=== PATIENT | female | born 1945 | race Caucasian/White ===

== ENCOUNTER → 2016-09-18 | Day surgery (SDC) | payer OTHER ==
[2016-08-28 08:21] VITALS: Ht 157.5 cm; Wt 55.5 kg
[~2016-09-18] VITALS: Ht 157.5 cm; Wt 55.5 kg
[~2016-09-18] MED LIST: ACETAMINOPHEN 325 MG TAB PO PRN; ASCO-63 PO; ATROPINE SULFATE 0.1 MG/ML 5ML SYR IV PRN; ATROPINE SULFATE 1% OP SOLN 2 ML BTL ONE; AcetylCHOLine CHL OP SOL 1:100 2 ML BTL ONE; BRIMONIDINE TART 0.2% OP SOLN PER DROP CHARGE ONE; BSS 500ML IRRIG ONE; BSS FLUSH ONE; CALC-393 PO; CHOL1TAB46 PO; EpHEDrine SULFATE INJ 50 MG/ML AMP IV PRN; EpINEphrine INJ 1MG/ML AMP 1 MG/ML AMP ONE; FENTANYL CITRATE INJ 50 MCG/1 ML 2 ML VIAL ONE; HEALON 10MG/ML 0.85 ML SYR INSTIL ONE; IBAN150T PO; LACTATED RINGER'S 1000ML 500 ML IV SCH; LIDOCAINE 3.5% OPH GEL PER APPLICATION CHARGE OPL SCH; LIDOCAINE 4% OP SOLN DROP CHARGE ONE; LIDOCAINE 4% OP SOLN DROP CHARGE OPL SCH; LIDOCAINE HCL 1% MPF 2 ML VIAL ONE; MIDAZOLAM HCL 1 MG/ML 2ML VIAL ONE; MOXIFLOXACIN OPH SOLN PER DROP CHARGE ONE; MULT-506 PO; OMEG12006 PO; POVIDONE-IODINE OP SOLN 30 ML BTL ONE; PRED1SUS3 OPL; PROPARACAINE 0.5% OP SOLN PER DROP CHARGE OPL SCH; RANI300T2 PO; TETRACAINE HCL (OPHTH) 60 DROPS/4 ML BTL OP ONE; TOBRAMYCIN/DEXAMETHASONE OPH OINT PER APPLN CHARGE ONE; VITA400C3 PO
[2016-09-18] MEDS: MOXIFLOXACIN OPH SOLN PER DROP CHARGE OPL SCH ×3 (10:13→10:24)
--- NOTE | 2016-09-18 10:20 | History & Physical Bridge - [place] ---
H&P Re-Evaluation Bridge Note: I have examined the patient, reviewed the History & Physical and in the interval since the performance of the History & Physical I have noted the following changes of clinical significance: No changes noted
[2016-09-18 11:35] VITALS: TEMP 36.5
--- NOTE | 2016-09-18 11:37 | [facility] Post Operative Brief Note ---
Immediate Operative Summary Operative Date September 18, 2016. Pre-Operative Diagnosis Left Eye Secondary Corneal Edema Post-Operative Diagnosis Same Procedure(s) Performed Left Eye Descements Stripping Automated Endothelial Keratoplasty, Back Bench Surgeon Dr. Thacker Product Safety Head Surgeon(s) None Estimated Blood Loss 0 Findings corneal edema left eye Specimens Corneal Donor Rim for Routine Culture Complication(s) None Disposition Recovery Room / PACU
--- NOTE | 2016-09-18 11:37 | Discharge Instructions-SurgCtr ---
Discharge Instructions Date of Service September 18, 2016. Visit Reason for Visit: Left Eye Secondary Corneal Edema Discharge Discharge Diagnosis / Problem: corneal edema left eye Discharge Goals Goal(s): Improve function Activity Recommendations Activity Limitations: per Instructions/Follow-up section Lifting Limitations: none Anesthesia . Post Anesthesia Instructions: If you have had General Anesthesia or IV Sedation: * Do not drive today. * Resume driving when surgeon permits. * Do not make important decisions or sign legal documents today. * Call surgeon for: 1. Temperature elevations greater than 101 degrees F. 2. Uncontrollable pain. 3. Excessive bleeding. 4. Persistent nausea and vomiting. 5. Medication intolerance (nausea, vomiting or rash). * For nausea and vomiting use only clear liquids such as: tea, soda, bouillon until nausea subsides, then gradually increase diet as tolerated. * If you have any concerns or questions, call your surgeon's office. If physician is unavailable and it is an emergency, call 911 or go to the nearest emergency room. . Instructions / Follow-Up Instructions / Follow-Up ACTIVITY RECOMMENDATIONS: * Bedrest (eyes to the alexandra) MEDICATIONS: Resume previous medications unless instructed otherwise by your surgeon. Eye drops (today and tomorrow): Cipro - one drop in operative eye every 2 hours while awake Prednisolone 1% - one drop in operative eye every 2 hours while awake SPECIAL CARE INSTRUCTIONS: * If any problems or concerns, please call Dr. Thacker's office at . * Keep plastic shield taped over eye to sleep at night. * Keep plastic shield taped over eye except to administer eye drops. * Keep plastic shield on until office visit the following day. FOLLOW UP VISIT: Follow-up with Dr. Thacker in the [place] office as scheduled. If not already scheduled, please call the office at . Diet Recommendations Home Diet: resume previous diet Procedures Procedures Performed: Left Eye Descements Stripping Automated Endothelial Keratoplasty, Back Bench Pending Studies Studies pending at discharge: yes List of pending studies: donor cornea culture Medical Emergencies . Who to Call and When: Medical Emergencies: If at any time you feel your situation is an emergency, please call 911 immediately. . Non-Emergent Contact Non-Emergency issues call your: Doctor Assistant . . "Provider Documentation" section prepared by Tomas Thacker. .
--- NOTE | 2016-09-18 11:58 | Anesthesia Progress Nt - [facility] ---
Anesthesia Post Op Note Date & Time September 18, 2016 at 11:58 Vital Signs Pain Intensity: 6.0 Vital Signs Past 12 Hours Date Time Temp Pulse Resp B/P Pulse Ox O2 Delivery O2 Flow Rate FiO2 09/18/16 11:35 36.5 73 16 131/84 95 Room Air 09/18/16 10:04 36.5 74 18 136/86 98 Room Air Notes Mental Status: alert / awake / arousable, participated in evaluation Pt Amnestic to Procedure: Yes Nausea / Vomiting: adequately controlled Pain: adequately controlled Airway Patency, RR, SpO2: stable & adequate BP & HR: stable & adequate Hydration State: stable & adequate Anesthetic Complications: no major complications apparent
[2016-09-18 12:45] VITALS: BP 128/79; PULSE 62; O2SAT 96
--- NOTE | 2016-09-18 14:48 | OPERATIVE REPORT ---
DATE OF OPERATION: 09/18/2016 PREOPERATIVE DIAGNOSIS: Corneal edema, left eye. POSTOPERATIVE DIAGNOSIS: Same. PROCEDURE PERFORMED: Descemet stripping automated endothelial keratoplasty, left eye. COMPLICATIONS: None. ESTIMATED BLOOD LOSS: None. ANESTHESIA: Local with sedation. DESCRIPTION OF PROCEDURE: After informed consent was obtained in the holding area, attention was first turned to the donor cornea. It was placed endothelial side up on the Delores trephine and trephinated with an 8.0 mm Delores blade. It was then covered in Optisol and set aside. The patient was then brought back to the operating room where cardiac monitoring leads and oxygen by nasal cannula was administered by anesthesia. Gentle IV sedation was given, and the patient's left eye was prepped and draped in usual sterile fashion. Wire lid speculum was placed in the left eye and the operating microscope swung into position. Using 0.12 forceps and a supersharp blade, a paracentesis port was made at the 5 o'clock position of patient's left eye. 1% nonpreserved lidocaine was injected into the anterior chamber for anesthesia. A 2.2 mm keratome blade was then used to make a shelved clear cornea incision at the 3 o'clock position of the patient's left eye. The previously used Delores trephine was then inked and used to lissy the surface of the cornea to delineate the diameter for stripping. The anterior chamber was then filled with Healon and a reversed Sinskey hook was used to score Descemet membrane around the periphery of the marked area. Descemet stripper was then used to remove this scored Descemet membrane from the center of the cornea. A stromal senior auditor was then used to roughen the stromal bed in the periphery of the stripped area. The main incision was marked for 4 mm and enlarged to 4 mm. Irrigation aspiration handpiece was then used to remove the Healon from the anterior chamber. The donor cornea was then placed endothelial side up on an EndoSerter with a drop of Healon on the endothelial side of the graft. It was then retracted back into the EndoSerter and the EndoSerter was inserted into the eye to deliver the cornea graft. The graft was then unfolded underneath BSS and air and a single 10-0 nylon suture was placed through the main incision. A complete air fill of the eye was achieved and the pressure was held for 10 minutes after which time the interface was milked using a Jhon Lasik roller. Three drops of atropine were then placed on the eye at that time. The eye was recoated with Healon and another 10 minutes elapsed after which time the Healon was removed from the surface, a partial air fluid exchange was performed leaving behind a 60% air fill. ReSure sealant was then placed over the incisions for extra wound integrity. The wire lid speculum was then removed from the eye. Vigamox and TobraDex were placed on the eye and the eye was shielded. The patient tolerated the procedure well and was taken to recovery area in stable condition. I attest to the content of the Intraoperative Record and any orders documented therein. Any exceptio ns are noted below.
== END | disposition home or self-care (01) ==
LOC: X.SURG 09:48
PROVIDERS: ATTEND Ophthalmology
DX: H18.51 Endothelial corneal dystrophy (principal); M81.0 Age-related osteoporosis without current pathological fracture; K21.9 Gastro-esophageal reflux disease without esophagitis; Z85.828 Personal history of other malignant neoplasm of skin; K44.9 Diaphragmatic hernia without obstruction or gangrene; Z90.710 Acquired absence of both cervix and uterus